=== PATIENT | female | born 1990 ===

== ENCOUNTER → 2022-11-05 | Outpatient (CLI) | payer BC ==
[2022-11-07 12:11] LABS: HPV 16 Negative (Negative); HPV 18 Negative (Negative); HPV OTHER HR TYPES Positive (Negative)
== END ==
LOC: LAB SHORT 16:44 → LAB 16:44
PROVIDERS: Family Medicine
DX: Z01.419 Encounter for gynecological examination (general) (routine) without abnormal findings (principal)
CPT/HCPCS: 87624; 87625; G0145

== ENCOUNTER → 2024-12-08 | Outpatient (CLI) | payer OTHER ==
[2024-12-15 13:39] LABS: HPV GENOTYPE 16 BY TMA Not Detected; HPV GENOTYPE 18/45 BY TMA Detected; HPV HIGH RISK BY TMA Detected; HPV SOURCE Cervical; HPVG SOURCE Cervical
== END | disposition home or self-care (01) ==
LOC: LAB 15:00 → LAB SHORT 15:00
PROVIDERS: Family Medicine
DX: R87.810 Cervical high risk human papillomavirus (HPV) DNA test positive (principal)
CPT/HCPCS: 87624; 87625; 88142